=== PATIENT | female | born 1970 | race African-American/Black ===

== ENCOUNTER 2017-03-12 12:44 | Inpatient (IN) ==
[2017-03-12 13:14] LABS: Basophils % 0.4 % (0.0-0.8); Eosinophils # 0.1 10*3/uL (0.0-0.87); Eosinophils % 2.3 % (0.00-10.9); Hematocrit 27.2 VOL% (35.7-47.0); Hemoglobin 8.4 GM/DL (12.0-16.0); Immature Granulocytes % 0.2 %; Immature Granulocytes Absolute 0.01 #; Lymphocytes # 1.6 10*3/uL (1.4-4.0); Lymphocytes % 32.1 % (21.3-54.2); Mean Corpuscular HGB Conc 30.9 GM/DL (32-36); Mean Corpuscular Hemoglobin 24 PG (27-34); Mean Corpuscular Volume 76.8 FL (87-102); Mean Platelet Volume 9.9 FL (9.6-12.0); Monocytes # 0.6 10*3/uL (0.11-0.8); Monocytes % 11.7 % (1.7-12.7); NRBC # 0.03 10*3/uL; Neutrophils # 2.7 10*3/uL (1.4-7.4); Neutrophils % 53.3 % (38.7-73.9); Platelet Count 281 T/CUMM (130-400); Red Blood Count 3.54 MC/CUMM (3.8-5.5); Red Cell Distribution Width 18.7 % (9.3-17.3); White Blood Count 5.1 T/CUMM (4-12)
[2017-03-12 13:30] LABS: PT Patient Result 10.7 SECS
[2017-03-12 13:53] LABS: Alanine Aminotransferase 37 U/L (13-56); Albumin 2.5 G/DL (3.4-5.0); Alkaline Phosphatase 166 U/L (45-117); Aspartate Amino Transferase 21 U/L (0-37); Bilirubin,Total < 0.39 MG/DL (0.2-1.0); Blood Urea Nitrogen 37 MG/DL (7-18); Calcium 8.4 MG/DL (8.5-10.1); Glucose 77 MG/DL (74-106); Magnesium 2.2 MG/DL (1.8-2.4); Osmolality,Calculated 286.4 MOS/KG (273-304); Potassium 4.4 MMOL/L (3.5-5.1); Sodium 140 MMOL/L (136-145); Total Protein 6.6 G/DL (6.4-8.3)
[2017-03-12 13:56] LABS: Troponin I Only 0.103 NG/ML (0.00-0.045)
[2017-03-12 14:15] LABS: % Iron Saturation 4.6 % (18-50)
[2017-03-12] MEDS ORDERED: FUROSEMIDE 40 MG/4 ML VIAL IV STA (14:38)
[2017-03-12] MEDS ORDERED: guaiFENesin/DM ER 600-30 MG TABLET PO PRN (14:43)
[2017-03-12] MEDS ORDERED: ACETAMINOPHEN 325 MG TABLET PO PRN (14:43)
[2017-03-12] MEDS ORDERED: ONDANSETRON 4 MG/2 ML VIAL IV PRN (14:43)
[2017-03-12] MEDS ORDERED: FUROSEMIDE 40 MG/4 ML VIAL ONE (14:53)
[2017-03-12] MEDS ORDERED: methylPREDNISolone SOD SUC 40 MG/1 ML VIAL IV SCH (15:00)
[2017-03-12] MEDS ORDERED: ENOXAPARIN 40 MG/0.4 ML SYRINGE SUBCUT SCH (15:00)
[2017-03-12 15:14] LABS: Barbiturates Screen,Urine Negative (Negative); Benzodiazepines Screen,Urine Negative (Negative); Cannabinoid Screen,Urine Negative (Negative); Opiate Screen,Urine Positive (Negative); Phencyclidine Screen,Urine Negative (Negative)
[2017-03-12 16:26] LABS: Risk Ratio 2.6; VLDL CHOLESTEROL 17.8 MG/DL
[2017-03-12] MEDS: NICOTINE 14 MG/24 HR PATCH TRANSDERM SCH (17:17)
[2017-03-12] MEDS ORDERED: IRON SUCROSE 300 MG in SODIUM CHLORIDE 0.9% 100 ML IV ONE (18:00)
[2017-03-12] MEDS: NITROGLYCERIN 2% OINT 1 INCH/GM PACK TOP SCH ×2 (18:20→23:21)
[2017-03-12] MEDS: ALBUTEROL/IPRATROPIUM 3 ML NEB RESP TX SCH (20:11)
[2017-03-12] MEDS: cloNIDine 0.1 MG TABLET PO SCH (20:36)
[2017-03-12] MEDS: FUROSEMIDE 40 MG TABLET PO SCH (20:36)
[2017-03-12] MEDS: CARVEDILOL 6.25 MG TABLET PO SCH (20:36)
[2017-03-12] MEDS: GABAPENTIN 300 MG CAPSULE PO SCH (20:37)
[2017-03-12] MEDS: hydrALAZINE 25 MG TABLET PO SCH (20:37)
[2017-03-12] MEDS: DOCUSATE SODIUM 100 MG CAPSULE PO SCH (20:37)
[2017-03-12] MEDS ORDERED: QUEtiapine 25 MG TABLET PO SCH (21:00)
[2017-03-12] MEDS ORDERED: FAMOTIDINE 20 MG TABLET PO SCH (21:00)
[2017-03-12] MEDS ORDERED: QUEtiapine 100 MG TABLET PO SCH (21:00)
[2017-03-12] MEDS ORDERED: hydrALAZINE 25 MG TABLET PO SCH (21:00)
[2017-03-12] MEDS ORDERED: ISOSORBIDE DINITRATE 20 MG TABLET PO SCH (21:00)
[2017-03-13] MEDS: ALBUTEROL/IPRATROPIUM 3 ML NEB RESP TX SCH ×2 (00:47→07:20)
[2017-03-13] MEDS: NITROGLYCERIN 2% OINT 1 INCH/GM PACK TOP SCH ×2 (05:24→11:46)
[2017-03-13 06:33] LABS: Basophils % 0.4 % (0.0-0.8); Eosinophils # 0.2 10*3/uL (0.0-0.87); Hematocrit 26.8 VOL% (35.7-47.0); Hemoglobin 8.5 GM/DL (12.0-16.0); Immature Granulocytes % 0.2 %; Immature Granulocytes Absolute 0.01 #; Lymphocytes % 39.6 % (21.3-54.2); Mean Corpuscular HGB Conc 31.7 GM/DL (32-36); Mean Corpuscular Hemoglobin 24 PG (27-34); Mean Corpuscular Volume 75.3 FL (87-102); Monocytes # 0.7 10*3/uL (0.11-0.8); Monocytes % 13.7 % (1.7-12.7); NRBC # 0.02 10*3/uL; Neutrophils # 2.1 10*3/uL (1.4-7.4); Neutrophils % 43.1 % (38.7-73.9); Platelet Count 308 T/CUMM (130-400); Red Blood Count 3.56 MC/CUMM (3.8-5.5); Red Cell Distribution Width 18.6 % (9.3-17.3)
[2017-03-13] MEDS ORDERED: POTASSIUM CHLORIDE 20 MEQ TABLET PO SCH (07:00)
[2017-03-13 07:33] LABS: Calcium 8.6 MG/DL (8.5-10.1); Osmolality,Calculated 284.7 MOS/KG (273-304); Potassium 4.1 MMOL/L (3.5-5.1)
[2017-03-13] MEDS: DOCUSATE SODIUM 100 MG CAPSULE PO SCH (08:18)
[2017-03-13] MEDS: hydrALAZINE 25 MG TABLET PO SCH (08:18)
[2017-03-13] MEDS: GABAPENTIN 300 MG CAPSULE PO SCH (08:18)
[2017-03-13] MEDS: CARVEDILOL 6.25 MG TABLET PO SCH (08:18)
[2017-03-13] MEDS: cloNIDine 0.1 MG TABLET PO SCH (08:18)
[2017-03-13] MEDS: FUROSEMIDE 40 MG TABLET PO SCH (08:18)
[2017-03-13] MEDS: NICOTINE 14 MG/24 HR PATCH TRANSDERM SCH (08:23)
[2017-03-13] MEDS ORDERED: LISINOPRIL 2.5 MG TABLET PO SCH (09:00)
[2017-03-13] MEDS ORDERED: VENLAFAXINE XR 75 MG CAPSULE PO SCH (09:00)
[2017-03-13] MEDS ORDERED: ASPIRIN EC 81 MG TABLET PO SCH (09:00)
[2017-03-13 11:02] VITALS: BP 121/81
[2017-03-13] MEDS ORDERED: PNEUMOCOCCAL VACCINE (23 VALENT) 0.5 ML VIAL IM ONE (12:34)
== END 2017-03-13 13:32 | DRG 291 ==
LOC: EDBD → EDUNIT# → N.ED 12:44 → N.EDINP 14:37 → SUATTDRO 14:37 → N.EDINP 16:12 → N.5E 16:52
PROVIDERS: ADMIT Internal Medicine; ATTEND Internal Medicine Nephrology

== ENCOUNTER 2017-04-02 17:23 | Inpatient (IN) ==
[2017-04-02] MEDS ORDERED: ALUM/MAG/SIMETH/LIDO VISC 1:1 30 ML BOTTLE PO STA (17:49)
[2017-04-02] MEDS ORDERED: ONDANSETRON 4 MG/2 ML VIAL IV STA (17:49)
[2017-04-02] MEDS ORDERED: NITROGLYCERIN 2% OINT 1 INCH/GM PACK TOP STA (17:49)
[2017-04-02] MEDS ORDERED: ASPIRIN 325 MG TABLET PO STA (17:49)
[2017-04-02] MEDS ORDERED: hydrALAZINE 20 MG/1 ML VIAL IV STA (17:49)
[2017-04-02] MEDS ORDERED: hydrALAZINE 20 MG/1 ML VIAL ONE (18:03)
[2017-04-02] MEDS ORDERED: ONDANSETRON 4 MG/2 ML VIAL ONE (18:03)
[2017-04-02] MEDS ORDERED: NITROGLYCERIN 2% OINT 1 INCH/GM PACK TOP ONE (18:03)
[2017-04-02] MEDS ORDERED: ALUM/MAG/SIMETH/LIDO VISC 1:1 30 ML BOTTLE PO ONE (18:04)
[2017-04-02] MEDS ORDERED: ASPIRIN 325 MG TABLET ONE (18:04)
[2017-04-02 18:23] LABS: Basophils % 0.7 % (0.0-0.8); Eosinophils # 0.2 10*3/uL (0.0-0.87); Hematocrit 33.5 VOL% (35.7-47.0); Hemoglobin 10.5 GM/DL (12.0-16.0); Immature Granulocytes % 0.2 %; Immature Granulocytes Absolute 0.01 #; Lymphocytes # 2.2 10*3/uL (1.4-4.0); Lymphocytes % 39.3 % (21.3-54.2); Mean Corpuscular HGB Conc 31.3 GM/DL (32-36); Mean Corpuscular Hemoglobin 24 PG (27-34); Mean Corpuscular Volume 76.5 FL (87-102); Monocytes # 0.6 10*3/uL (0.11-0.8); Monocytes % 11.2 % (1.7-12.7); Neutrophils # 2.6 10*3/uL (1.4-7.4); Neutrophils % 45.6 % (38.7-73.9); Platelet Count 270 T/CUMM (130-400); Red Blood Count 4.38 MC/CUMM (3.8-5.5); Red Cell Distribution Width 19.1 % (9.3-17.3); White Blood Count 5.6 T/CUMM (4-12)
[2017-04-02 18:41] LABS: PT Patient Result 10.4 SECS
[2017-04-02 18:59] LABS: Alanine Aminotransferase 23 U/L (13-56); Albumin 3.4 G/DL (3.4-5.0); Alkaline Phosphatase 121 U/L (45-117); Aspartate Amino Transferase 18 U/L (0-37); Bilirubin,Total < 0.39 MG/DL (0.2-1.0); Blood Urea Nitrogen 43 MG/DL (7-18); Calcium 8.7 MG/DL (8.5-10.1); Glucose 92 MG/DL (74-106); Magnesium 2.3 MG/DL (1.8-2.4); Osmolality,Calculated 293.1 MOS/KG (273-304); Potassium 4.2 MMOL/L (3.5-5.1); Sodium 142 MMOL/L (136-145)
[2017-04-02 19:30] LABS: Apearance,Urine CLOUDY (Clear); Bacteria,Urine Occasional /HPF (Few); Bilirubin,Urine Negative (Negative); Blood, Urine Negative (Negative); Glucose,Urine (UA) Negative (Negative); Hyaline Casts,Urine 1 /LPF (0-3); Ketones,Urine Negative (Negative); Mucus,Urine Occasional /LPF (Occasional); Nitrite,Urine Negative (Negative); Protein,Urine 30 MG/DL; RBC,Urine 16 /HPF (0-4); Squamous Epithelial Cell,Urine Few /HPF (0-10); Urine Color Yellow (Yellow); Urine Specific Gravity 1.011 (1.001-1.035); Urine Urobilinogen < 2.0 EU/DL (0.2-1.0); WBC,Urine 14 /HPF (0-6)
[2017-04-02 19:54] LABS: Barbiturates Screen,Urine Negative (Negative); Benzodiazepines Screen,Urine Negative (Negative); Cannabinoid Screen,Urine Negative (Negative); Opiate Screen,Urine Negative (Negative); Phencyclidine Screen,Urine Negative (Negative)
[2017-04-02] MEDS ORDERED: cefTRIAXone 1,000 MG in SODIUM CHLORIDE 0.9% 100 ML IV STA (20:14)
[2017-04-02] MEDS ORDERED: cefTRIAXone 1,000 MG VIAL ONE (20:20)
[2017-04-02] MEDS ORDERED: SODIUM CHLORIDE 0.9% 100 ML IV ONE (20:21)
[2017-04-02] MEDS ORDERED: ONDANSETRON 4 MG/2 ML VIAL IV PRN (20:35)
[2017-04-02] MEDS ORDERED: ALBUTEROL 2.5 MG/3 ML NEB RESP TX PRN (20:46)
[2017-04-02] MEDS ORDERED: NITROGLYCERIN SL 0.4 MG TABLET SL PRN (20:49)
[2017-04-02] MEDS ORDERED: ENOXAPARIN 30 MG/0.3 ML SYRINGE SUBCUT SCH (21:00)
[2017-04-02] MEDS: CARVEDILOL 6.25 MG TABLET PO SCH (23:28)
[2017-04-02] MEDS: ISOSORBIDE DINITRATE 20 MG TABLET PO SCH (23:29)
[2017-04-02] MEDS: QUEtiapine 100 MG TABLET PO SCH (23:29)
[2017-04-02] MEDS: GABAPENTIN 300 MG CAPSULE PO SCH (23:30)
[2017-04-02] MEDS: hydrALAZINE 25 MG TABLET PO SCH (23:30)
[2017-04-03 01:44] LABS: Calcium 8.2 MG/DL (8.5-10.1); Osmolality,Calculated 292.1 MOS/KG (273-304); Potassium 3.8 MMOL/L (3.5-5.1); Risk Ratio 2.82; VLDL CHOLESTEROL 30.8 MG/DL
[2017-04-03 01:51] LABS: Basophils % 0.4 % (0.0-0.8); Eosinophils # 0.2 10*3/uL (0.0-0.87); Eosinophils % 3.2 % (0.00-10.9); Hematocrit 31.7 VOL% (35.7-47.0); Hemoglobin 10.2 GM/DL (12.0-16.0); Immature Granulocytes % 0.4 %; Immature Granulocytes Absolute 0.02 #; Lymphocytes % 39.6 % (21.3-54.2); Mean Corpuscular HGB Conc 32.2 GM/DL (32-36); Mean Corpuscular Hemoglobin 24 PG (27-34); Mean Corpuscular Volume 75.7 FL (87-102); Mean Platelet Volume 11.2 FL (9.6-12.0); Monocytes # 0.5 10*3/uL (0.11-0.8); Monocytes % 10.5 % (1.7-12.7); Neutrophils # 2.3 10*3/uL (1.4-7.4); Neutrophils % 45.9 % (38.7-73.9); Platelet Count 264 T/CUMM (130-400); Red Blood Count 4.19 MC/CUMM (3.8-5.5); Red Cell Distribution Width 19.1 % (9.3-17.3); White Blood Count 5.1 T/CUMM (4-12)
[2017-04-03] MEDS: ESCITALOPRAM 10 MG TABLET PO SCH (06:05)
[2017-04-03] MEDS: POTASSIUM CHLORIDE 20 MEQ TABLET PO SCH (06:05)
[2017-04-03] MEDS: LISINOPRIL 20 MG TABLET PO SCH (06:05)
[2017-04-03] MEDS: MINOXIDIL 2.5 MG TABLET PO SCH (06:05)
[2017-04-03] MEDS: ISOSORBIDE DINITRATE 20 MG TABLET PO SCH ×2 (08:45→21:27)
[2017-04-03] MEDS: CARVEDILOL 6.25 MG TABLET PO SCH ×2 (08:45→21:27)
[2017-04-03] MEDS: hydrALAZINE 25 MG TABLET PO SCH ×2 (08:45→21:26)
[2017-04-03] MEDS: FUROSEMIDE 40 MG/4 ML VIAL IV SCH ×2 (08:45→16:04)
[2017-04-03] MEDS: FERROUS SULFATE 325 MG TABLET PO SCH (08:45)
[2017-04-03] MEDS: GABAPENTIN 300 MG CAPSULE PO SCH ×2 (08:45→21:30)
[2017-04-03] MEDS: PANTOPRAZOLE 40 MG TABLET PO SCH (08:45)
[2017-04-03] MEDS: ASPIRIN EC 81 MG TABLET PO SCH (16:04)
[2017-04-03] MEDS: SUMAtriptan 25 MG TABLET PO PRN ×2 (17:36→21:38)
[2017-04-03] MEDS: QUEtiapine 100 MG TABLET PO SCH (21:26)
[2017-04-03] MEDS: cefTRIAXone 1,000 MG in SYRINGE 1 EACH IV SCH (21:28)
[2017-04-03] MEDS: ENOXAPARIN 40 MG/0.4 ML SYRINGE SUBCUT SCH (21:30)
[2017-04-03] MEDS: LIDOCAINE 5% PATCH TRANSDERM SCH (21:30)
[2017-04-04 03:40] LABS: Basophils % 0.6 % (0.0-0.8); Eosinophils # 0.1 10*3/uL (0.0-0.87); Eosinophils % 2.5 % (0.00-10.9); Hematocrit 34.3 VOL% (35.7-47.0); Hemoglobin 10.9 GM/DL (12.0-16.0); Immature Granulocytes % 0.4 %; Immature Granulocytes Absolute 0.02 #; Lymphocytes # 2.4 10*3/uL (1.4-4.0); Lymphocytes % 46.3 % (21.3-54.2); Mean Corpuscular HGB Conc 31.8 GM/DL (32-36); Mean Corpuscular Hemoglobin 24 PG (27-34); Mean Corpuscular Volume 74.6 FL (87-102); Mean Platelet Volume 10.3 FL (9.6-12.0); Monocytes # 0.6 10*3/uL (0.11-0.8); Monocytes % 11.9 % (1.7-12.7); Neutrophils % 38.3 % (38.7-73.9); Platelet Count 265 T/CUMM (130-400); Red Cell Distribution Width 19.2 % (9.3-17.3); White Blood Count 5.2 T/CUMM (4-12)
[2017-04-04 04:08] LABS: Eosinophils 1 % (0-10); Lymphocytes 43 % (20-55); Segmented Neutrophils 46 % (50-85); Total Cells Counted 100
[2017-04-04 04:09] LABS: Platelet Estimate Normal
[2017-04-04 04:23] LABS: Calcium 8.3 MG/DL (8.5-10.1); Magnesium 2.3 MG/DL (1.8-2.4); Osmolality,Calculated 289.3 MOS/KG (273-304); Potassium 3.6 MMOL/L (3.5-5.1)
[2017-04-04] MEDS: MINOXIDIL 2.5 MG TABLET PO SCH (06:29)
[2017-04-04] MEDS: LISINOPRIL 20 MG TABLET PO SCH (06:29)
[2017-04-04] MEDS: POTASSIUM CHLORIDE 20 MEQ TABLET PO SCH (06:29)
[2017-04-04] MEDS: ESCITALOPRAM 10 MG TABLET PO SCH (06:29)
[2017-04-04] MEDS: SUMAtriptan 25 MG TABLET PO PRN (06:30)
[2017-04-04] MEDS: ISOSORBIDE DINITRATE 20 MG TABLET PO SCH ×2 (09:07→20:30)
[2017-04-04] MEDS: FERROUS SULFATE 325 MG TABLET PO SCH (09:08)
[2017-04-04] MEDS: LIDOCAINE 5% PATCH TRANSDERM SCH (09:08)
[2017-04-04] MEDS: FUROSEMIDE 40 MG/4 ML VIAL IV SCH ×2 (09:08→16:20)
[2017-04-04] MEDS: PANTOPRAZOLE 40 MG TABLET PO SCH (09:08)
[2017-04-04] MEDS: ASPIRIN EC 81 MG TABLET PO SCH (09:08)
[2017-04-04] MEDS: hydrALAZINE 25 MG TABLET PO SCH ×2 (09:08→20:30)
[2017-04-04] MEDS: CARVEDILOL 6.25 MG TABLET PO SCH ×2 (09:08→20:30)
[2017-04-04] MEDS: GABAPENTIN 300 MG CAPSULE PO SCH ×2 (09:18→20:30)
[2017-04-04] MEDS: ENOXAPARIN 40 MG/0.4 ML SYRINGE SUBCUT SCH (20:30)
[2017-04-04] MEDS: QUEtiapine 100 MG TABLET PO SCH (20:30)
[2017-04-04] MEDS: cefTRIAXone 1,000 MG in SYRINGE 1 EACH IV SCH (20:30)
[2017-04-05] MEDS: MINOXIDIL 2.5 MG TABLET PO SCH (06:00)
[2017-04-05] MEDS: ESCITALOPRAM 10 MG TABLET PO SCH (06:00)
[2017-04-05] MEDS: POTASSIUM CHLORIDE 20 MEQ TABLET PO SCH (06:01)
[2017-04-05] MEDS: LISINOPRIL 20 MG TABLET PO SCH (06:01)
[2017-04-05] MEDS: ISOSORBIDE DINITRATE 20 MG TABLET PO SCH (09:04)
[2017-04-05] MEDS: FERROUS SULFATE 325 MG TABLET PO SCH (09:04)
[2017-04-05] MEDS: ASPIRIN EC 81 MG TABLET PO SCH (09:04)
[2017-04-05] MEDS: LIDOCAINE 5% PATCH TRANSDERM SCH (09:05)
[2017-04-05] MEDS: PANTOPRAZOLE 40 MG TABLET PO SCH (09:05)
[2017-04-05] MEDS: GABAPENTIN 300 MG CAPSULE PO SCH (09:05)
[2017-04-05] MEDS: CARVEDILOL 6.25 MG TABLET PO SCH (09:05)
[2017-04-05] MEDS: hydrALAZINE 25 MG TABLET PO SCH (09:05)
[2017-04-05 09:06] VITALS: BP 164/99
[2017-04-05] MEDS: FUROSEMIDE 40 MG/4 ML VIAL IV SCH ×2 (09:10→15:01)
== END 2017-04-05 15:52 | DRG 291 ==
LOC: EDUNIT# → EDBD → N.EDINP 17:23 → N.ED 17:23 → N.TELEN 21:24
PROVIDERS: ADMIT Internal Medicine; ATTEND Internal Medicine